=== PATIENT | female | born 1955 | race Caucasian/White ===

== ENCOUNTER → 2024-11-01 | Outpatient (CLI) | payer OTHER ==
[2024-11-01 15:11] LABS: ALBUMIN 3.5 g/dL (3.5-5.0); BILIRUBIN,TOTAL 0.3 mg/dL (0.2-1.0); CREATININE 1.1 mg/dL (0.5-1.0); POTASSIUM 4.2 mmol/L (3.5-5.1)
--- NOTE | 2024-11-05 00:49 | HMCSR ---
APPROVED REPORT EXAM: Two-dimensional and M-mode echocardiogram with Doppler and color Doppler. INDICATION ICD: Other chest pain R07.89 2D Dimensions RVDd2.9 cmLVEF(%)68.6 (>50%)LVED Vol(simp.)65.1 mL IVSd0.9 (0.7-1.1cm)FS(%)38 %LVES Vol(simp.)28.7 mL LVDd4.7 (3.8-5.6cm)LA (2D)4.1 (1.6-4.0cm)LVEF(%, simp.)56 % PWd0.7 (0.7-1.1cm)Ao Root(2D)2.7 (2.0-3.7cm)LA ESV INDEX (BP)28.91 mL/m2 IVSs1.3 cmLVOT diam2.1 (1.8-2.4cm) LVDs2.9 (2.5-4.0cm)IVC diam1.0 cm PWs1.1 cm Deformation Strain Apical 4-11.7 % Apical 2-12.5 % Apical 3-15.7 % Global Strain-13.3 % M-Mode Dimensions EPSS0.9 cm LA (MM)4.2 (1.6-4.0cm) Ao Root(MM)2.4 (2.0-3.7cm) Aortic Valve AoV Vmax1.2 m/Radha Peak GR6.0 mmHgLVOT Vmax0.8 m/s AoV VTI0.2 mAo Mean GR3.1 mmHgLVOT VTI0.16 m YOON (VMAX)2.14 cm2AVA (VTI) 2.3 cm2 Mitral Valve MV E Vmax92.6 cm/sDECEL Bywm211 ms MV A Xfpf833.0 cm/sP 1/2 T47 ms E/A ratio0.9MVA (PHT)4.7 cm2 TDI E/E' Xdrajs56.0E/E' Hsdakum41.7 Medial E' Peak V3.71 cm/sLateral E' Peak V3.23 cm/s Pulmonary Valve PV Vmax0.7 m/sPV VTI0.14 mPV Mean GR1.1 mmHg PV Peak GR1.8 mmHgPI End Valeria. Yahir 95.7 cm/s Tricuspid Valve TR Vmax2.0 m/sRAP (EST) 3 ufQcMVDG76.9 mmHg TR Peak GR15.9 mmHg Left Ventricle The left ventricle is normal size. No regional wall motion abnormalities noted. Mild concentric left ventricular hypertrophy. Left ventricular systolic function is low-normal, estimated LVEF is 50%. E/E > 14, which is trace tricuspid regurgitation. RVSP is suggestive of increased left ventricular end diastolic pressure. Right Ventricle The right ventricle is normal size. The right ventricular systolic function is normal. Atria The left atrium is mildly dilated. The right atrium size is normal. Aortic Valve Aortic valve is trileaflet. The leaflets are mildly thickened and calcified. No aortic regurgitation is present. There is no aortic valvular stenosis. Mitral Valve The mitral valve is normal in structure. Mild mitral regurgitation. There is no mitral valve stenosis . Tricuspid Valve The tricuspid valve is normal in structure. Trace tricuspid regurgitation. RVSP is 16 mmHg. Pulmonic Valve Pulmonic valve is not well visualized. Great Vessels The aortic root is normal in size. The IVC is normal in size and collapses >50% with inspiration. Pericardium There is no pericardial effusion. Other Information Quality : Adequate Conclusion The left atrium is mildly dilated. Mild concentric left ventricular hypertrophy. No regional wall motion abnormalities noted. Left ventricular systolic function is low-normal, estimated LVEF is 50%. E/E > 14, which is trace tricuspid regurgitation. RVSP is suggestive of increased left ventricular end diastolic pressure. Mild mitral regurgitation. Trace tricuspid regurgitation. PASP is 19 mmHg. There is no pericardial effusion.
== END | disposition home or self-care (01) ==
LOC: RAH 13:25
PROVIDERS: ATTEND Internal Medicine Cardiovascular Disease
DX: I37.1 Nonrheumatic pulmonary valve insufficiency (principal); R07.9 Chest pain, unspecified
CPT/HCPCS: 36415; 80053; 93306

== ENCOUNTER → 2024-11-03 | Outpatient (CLI) | payer OTHER ==
[~2024-11-03] MED LIST: IOHEXOL 350 MG/ML 100ML INFUS..BTL IV ONE; metoPROLOL tartRATE 1 MG/ML 5ML VIAL IV ONE
--- NOTE | 2024-11-03 12:07 | HMCIMG ---
CT CARDIAC ANGIO W/CONT. CCTA HISTORY: Chest pain COMPARISON: None TECHNIQUE: Multiple sequential axial images of the chest were obtained along with the CT angiogram of the chest study. Patient was given 100 cc of Omnipaque through intravenous route. FINDINGS: There is no evidence of pulmonary nodule or parenchymal disease. No pleural effusion or pericardial effusion is seen. There is no evidence of pneumothorax. There are normal size mediastinal and hilar lymph nodes. Coronary arterial calcifications are seen. The heart is not enlarged. Degenerative changes of the thoracolumbar spine are present. IMPRESSION: 1. No evidence of pulmonary nodule or effusion is seen. Please see CT angiogram report of coronary arteries.
--- NOTE | 2024-11-04 20:25 | CARDIOLOGY ---
RAD REPORT: CORNARY CT ANGIO RADIOLOGY REPORT: CORONARY CT ANGIOGRAPHY DATE: November 04, 2024 QUALITY: Excellent CLINICAL HISTORY AND INDICATION: [ chest pain] TECHNIQUE: After obtaining a preliminary pulmonologist/intensivist image, contrast imaging performed on an [employer] [id number] scanner. A dedicated, limited window, coronary imaging protocol was used, with single breath-hold, retrospective ECG gating, and automated arrhythmia rejection. 100 cc of low osmolar contrast agent: Omnipaque 350 was delivered via a 18-gauge IV catheter in the right antecubital fossa, using a power injector and followed by 60 cc of normal saline bolus as a chaser. Collimated images were reformatted at 0.5 mm intervals, and sent to an offline independent workstation for interpretation, using 3D anatomic reconstructions: Curved multiplanar reconstructions, maximum intensity projections, and multiplanar imaging. No metoprolol was administered prior to scanning due to low baseline heart rate. 0.4 mg SL nitroglycerin was given. CORONARY ARTERY DESCRIPTIONS: The coronary arteries arise in normal position. Left main coronary artery: Normal caliber vessel that bifurcates into the LAD and LCx. No stenosis. Left anterior descending coronary artery: Normal caliber vessel and gives rise to diagonal and septal branches. There is calcified plaque in the proximal and mid LAD with 20-30% stenosis. Left circumflex coronary artery: Normal caliber, nondominant and gives rise to three OM branches. No stenosis. Right coronary artery: Large, dominant vessel giving rise to the PL and PDA branches. No stenosis. CAD-RADs: 2, mild non-obstructive CAD. Thoracic Aorta: Normal diameter. Monika Suero MD Cardiovascular Disease [facility] MONIKA SUERO MD November 04, 2024 20:25
== END | disposition home or self-care (01) ==
LOC: RAH 10:04 → EDUNIT# 10:30
PROVIDERS: ATTEND Internal Medicine Cardiovascular Disease
DX: I25.10 Atherosclerotic heart disease of native coronary artery without angina pectoris (principal); M47.815 Spondylosis without myelopathy or radiculopathy, thoracolumbar region; R07.9 Chest pain, unspecified
CPT/HCPCS: 75574; J3490; Q9967